=== PATIENT | male | born 1970 | race Caucasian/White ===

== ENCOUNTER 2018-07-21 11:26 | Day surgery (SDC) | payer BC ==
[2018-07-20 11:44] VITALS: BMI 35.9
[~2018-07-21 11:26] MED LIST: LACTATED RINGERS 1,000 ML IV SCH; LIDOCAINE 1% 20 ML VIAL (10MG/ML) FOR IV START INTRADERMA PRN
[2018-07-21 11:59] VITALS: RESP 16; TEMP 97.1
[2018-07-21] MEDS ORDERED: GLYCOPYRROLATE 0.2 MG/ML 2 ML VIAL ONE (12:00)
[2018-07-21] MEDS ORDERED: GLUCAGON 1 MG/ML VIAL ONE (12:00)
[2018-07-21] MEDS ORDERED: LIDOCAINE 1% INJ 10MG/ML (20 ML MDV) ONE (12:00)
[2018-07-21] MEDS ORDERED: PROPOFOL 10 MG/ML 20 ML VIAL IV ONE (12:00)
--- NOTE | 2018-07-21 12:03 | P.GSHP ---
History of Present Illness H&P Date: 07/21/18 Chief Complaint: GI bleed This is a 48-year-old male who presents today for EGD and colonoscopy. He's had issues with rectal bleeding. Patient's complaints of multiple bloody bowel movements. Past Medical History Past Medical History: GERD/Reflux, Hypertension Additional Past Medical History / Comment(s): no longer on rx for b/p,currently having bleeding with stools History of Any Multi-Drug Resistant Organisms: None Reported Past Surgical History: Appendectomy Additional Past Surgical History / Comment(s): hole in lining of stomach repaired to tx heartburn Past Anesthesia/Blood Transfusion Reactions: No Reported Reaction Smoking Status: Current every day smoker - Past Family History Mother Family Medical History: No Reported History Medications and Allergies Home Medications Medication Instructions Recorded Confirmed Type No Known Home Medications 10/23/15 07/21/18 History Allergies Allergy/AdvReac Type Severity Reaction Status Date / Time No Known Allergies Allergy Verified 07/21/18 11:43 Surgical - Exam Vital Signs Temp Pulse Resp BP Pulse Ox 97.1 F L 58 L 16 153/96 95 07/21/18 11:57 07/21/18 11:57 07/21/18 11:57 07/21/18 11:57 07/21/18 11:57 - General well developed, well nourished, no distress - Eyes PERRL - ENT normal pinna - Neck no masses - Respiratory normal expansion, normal respiratory effort - Cardiovascular Rhythm: regular - Abdomen Abdomen: soft, non tender Assessment and Plan Assessment: GI bleed. We'll perform colonoscopy and EGD.
[2018-07-21 12:51] VITALS: BP 152/95; PULSE 68
[2018-07-21 12:55] LABS: HCT 42.1 % (39.0-53.0); HGB 14.1 gm/dL (13.0-17.5); MCH 28.5 pg (25.0-35.0); MCHC 33.4 g/dL (31.0-37.0); MCV 85.3 fL (80.0-100.0); Mean Platelet Volume 8.7; Platelet Count 199 k/uL (150-450); RBC 4.94 m/uL (4.30-5.90); RDW 13.2 % (11.5-15.5); WBC 6.6 k/uL (3.8-10.6)
--- NOTE | 2018-07-27 17:51 | PCN ---
PROCEDURE NOTE DATE OF PROCEDURE: 07/21/2018 PROCEDURE: Esophagogastroduodenoscopy and colonoscopy. PREOPERATIVE DIAGNOSIS: Gastrointestinal bleed. POSTOPERATIVE DIAGNOSES: 1. Mild antral gastritis. 2. Multiple colonic biopsies; pathology pending. SURGEON: Dr. Carrillo. INSTRUCTIONAL TECHNOLOGY INSTRUCTOR: None. ANESTHESIA: MAC PROCEDURE DESCRIPTION: Patient was placed on the endoscopy table in a lateral position. He received IV sedation. The gastroscope was placed into the oropharynx and passed into the esophagus and into the stomach. The scope was then placed through the pylorus. The first and second portions of the duodenum appeared normal. The scope was then brought back to the antrum, and this appeared minimally inflamed. A biopsy was performed. There was no evidence of any blood in the stomach or duodenum. The scope was then retroflexed. Remainder of the stomach appeared normal. There was no significant hiatal hernia. The GE junction was at 40 cm. The distal esophagus and proximal esophagus appeared normal. Once again, there was no bleeding seen in the esophagus, stomach or duodenum. At this point the scope was withdrawn and then a digital rectal exam was performed. There was some minimal bloody fluid noted on the examining finger. The flexible colonoscope was then placed through the anus and passed throughout the entire colon. The ileocecal valve was visualized. There was dark bloody stool seen throughout the entire colon. This limited the view of the mucosa. Because of the blood seen throughout the entire colon, biopsies of the colon were performed in the right colon, transverse colon, descending colon, sigmoid colon and rectum. Using the cold forceps, the biopsies were performed. There was no evidence of any active bleeding. There was no evidence of any polyps or tumors. At this point the scope was withdrawn. The patient tolerated the procedure well. MMODL / IJN: [id number] /
== END 2018-07-21 13:38 | disposition home or self-care (01) ==
LOC: ORWHC2ENDO 11:26
PROVIDERS: ATTEND Surgery
DX: K92.1 Melena (principal); K29.50 Unspecified chronic gastritis without bleeding; K21.9 Gastro-esophageal reflux disease without esophagitis; I10 Essential (primary) hypertension; F17.210 Nicotine dependence, cigarettes, uncomplicated; Z79.899 Other long term (current) drug therapy
CPT/HCPCS: 88305; 85027; 45380; 43239; J1610; J2001; J2704

== ENCOUNTER → 2018-08-13 | Outpatient (CLI) | payer BC ==
--- NOTE | 2018-08-13 18:43 | CT ---
EXAMINATION TYPE: CT abdomen pelvis w con DATE OF EXAM: 08/13/2018 COMPARISON: None HISTORY: blood in stool X [address] DLP: 1623 mGycm Automated exposure control for dose reduction was used. TECHNIQUE: Helical acquisition of images was performed from the lung bases through the pelvis. CONTRAST: Performed with Oral Contrast and with IV Contrast, patient injected with 100 mL of Isovue 300. FINDINGS: Lung bases are clear. There is no pleural effusion. Heart size is normal. There is no pericardial eff usion. Liver shows no focal defect. Gallbladder appears normal. Spleen appears normal. There is no pa ncreatic mass. There is no adrenal mass. Kidneys show satisfactory contrast opacification. There is n o hydronephrosis. Stomach appears normal in size. There are clips at the gastroesophageal junction. Bladder distends smoothly. There is no free fluid in the pelvis. There is no inguinal hernia. There i s no mesenteric edema. Appendix is not definitely seen. There is no sign of appendicitis. There is some wall thickening of the sigmoid colon. There are a few sigmoid diverticula. Lumbar spine is intact. I see no bony destructive process. Delayed images show normal contrast excretion. IMPRESSION: PREVIOUS GASTRIC SURGERY. MILD WALL THICKENING OF THE SIGMOID COLON WITH A FEW SCATTERED DIVERTICULA. POSSIBLE FOCAL SIGMOID MASS ON IMAGE 70 AXIAL SEQUENCE. SIGMOIDOSCOPY IS RECOMMENDED FOR FURTHER LESLIE LUATION IF CLINICALLY INDICATED.
== END | disposition home or self-care (01) ==
LOC: RADCTMAIN 15:30
PROVIDERS: ATTEND Surgery
DX: K57.30 Diverticulosis of large intestine without perforation or abscess without bleeding (principal); Z98.890 Other specified postprocedural states
CPT/HCPCS: 74177; Q9967

== ENCOUNTER 2018-08-14 22:41 | Emergency (ER) | payer BC ==
[2018-08-14 23:16] LABS: Basophils % (A) 0 %; Eosinophils # (A) 0.2 k/uL (0-0.7); Eosinophils % (A) 2 %; HCT 47.6 % (39.0-53.0); Lymphocytes # (A) 1.7 k/uL (1.0-4.8); Lymphocytes % (A) 18 %; MCH 28.4 pg (25.0-35.0); MCHC 33.6 g/dL (31.0-37.0); MCV 84.5 fL (80.0-100.0); Monocytes # (A) 0.6 k/uL (0-1.0); Monocytes % (A) 6 %; Neutrophils # (A) 6.7 k/uL (1.3-7.7); Neutrophils % (A) 72 %; Platelet Count 318 k/uL (150-450); RBC 5.63 m/uL (4.30-5.90); RDW 13.4 % (11.5-15.5); WBC 9.4 k/uL (3.8-10.6)
[2018-08-14 23:20] LABS: ALT 61 U/L (21-72); AST 33 U/L (17-59); Albumin 4.6 g/dL (3.5-5.0); Alkaline Phosphatase 76 U/L (38-126); Anion Gap 9 mmol/L; Blood Urea Nitrogen 12 mg/dL (9-20); Calcium 10.3 mg/dL (8.4-10.2); Carbon Dioxide 23 mmol/L (22-30); Chloride 107 mmol/L (98-107); Glucose 100 mg/dL (74-99); Potassium 4.2 mmol/L (3.5-5.1); Sodium 139 mmol/L (137-145); Total Bilirubin 0.5 mg/dL (0.2-1.3)
--- NOTE | 2018-08-14 23:59 | ED ---
GI Bleed HPI - General Chief complaint: GI Bleed Stated complaint: Dizzy, Blood in stool Time Seen by Provider: 08/14/18 22:50 Source: patient, family Mode of arrival: wheelchair Limitations: no limitations - History of Present Illness Initial comments: Patient is a 48-year-old gentleman who has been experiencing red rectal bleeding for approximately a month. He has followed up with general surgery and had an endoscopy and colonoscopy. Colonoscopy did reveal some blood in the colon which limited visibility however multiple biopsies were obtained which were all benign in nature. In addition he underwent a computed tomography scan yesterday does not yet have the results. Patient reports that today he is feeling somewhat lightheaded upon standing and was concerned this may be related to blood loss of came to the ER to have his hemoglobin checked. Patient denies any chest pain, palpitations or shortness of breath. He reports that he still having bright red blood with stools daily. There is been no increase in the bleeding today. In addition patient does report that he has had URI-like symptoms nasal congestion and rhinorrhea which is improving this week however he has noticed that he has fullness in his right ear and feels that he has decreased hearing in that ear. He also feels somewhat dizzy with the room spinning sensation at times however primarily was experiencing lightheadedness which she felt resolved by laying down and relaxing. - Related Data Home Medications Medication Instructions Recorded Confirmed Metoprolol Tartrate [Lopressor] 50 mg PO DAILY 08/14/18 08/14/18 Allergies Allergy/AdvReac Type Severity Reaction Status Date / Time No Known Allergies Allergy Verified 08/14/18 23:06 Review of Systems ROS Statement: Those systems with pertinent positive or pertinent negative responses have been documented in the HPI. ROS Other: All systems not noted in ROS Statement are negative. Past Medical History Past Medical History: GERD/Reflux, Hypertension Additional Past Medical History / Comment(s): no longer on rx for b/p,currently having bleeding with stools History of Any Multi-Drug Resistant Organisms: None Reported Past Surgical History: Appendectomy Additional Past Surgical History / Comment(s): hole in lining of stomach repaired to tx heartburn Past Anesthesia/Blood Transfusion Reactions: No Reported Reaction Past Psychological History: No Psychological Hx Reported Smoking Status: Current every day smoker Past Alcohol Use History: None Reported Past Drug Use History: None Reported - Past Family History Mother Family Medical History: No Reported History General Exam - General Exam Comments Initial Comments: Physical Exam GENERAL: Patient is well-developed and well-nourished. Patient is nontoxic and well- hydrated and is in no distress. No pallor or flushing HENT: Normocephalic, Atraumatic. EYES: PERRL, EOMI No conjunctival pallor PULMONARY: Unlabored respirations. No audible rales rhonchi or wheezing was noted. CARDIOVASCULAR: There is a regular rate and rhythm without any murmurs gallops or rubs. ABDOMEN: Soft and nontender with normal bowel sounds. SKIN: Skin is clear with no lesions or rashes and otherwise unremarkable. : Deferred NEUROLOGIC: Patient is alert and oriented x3. Moving all extremities spontaneously MUSCULOSKELETAL: Normal extremities with adequate strength and full range of motion. No lower extremity swelling or edema. No calf tenderness. PSYCHIATRIC: Normal psychiatric evaluation. Limitations: no limitations Limitations: no limitations Course Vital Signs 08/14/18 08/14/18 22:44 23:34 Temperature 99.2 F Pulse Rate 93 Respiratory 20 16 Rate Blood Pressure 148/108 O2 Sat by Pulse 99 Oximetry Medical Decision Making - Medical Decision Making The patient was seen and evaluated history was obtained from the patient Medical record was reviewed - patient had computed tomography scan with some sigmoid inflammation, biopsies were negative Baseline hemoglobin 14 Repeat labs were ordered hemoglobin today is 16 patient's hemodynamically stable results were discussed patient patient was given a printout of his CT and biopsy findings he expressed relief under Alexander's. All questions pertaining care were answered return parameters were discussed advised the patient that he should follow up with gastroenterology as well as general surgery for evaluation of inflammatory causes of GI bleeding. Patient agreeable to this. He is scheduled to see Dr. Bina meneses on the of this month. He is scheduled follow-up Dr. Arenas later this week. Return parameters discussed patient was discharged home in stable condition. - Lab Data Result diagrams: 08/14/18 23:00 08/14/18 23:00 Lab Results 08/14/18 08/14/18 Range/Units 23:00 23:00 WBC 9.4 (3.8-10.6) k/uL RBC 5.63 (4.30-5.90) m/uL Hgb 16.0 (13.0-17.5) gm/dL Hct 47.6 (39.0-53.0) % MCV 84.5 (80.0-100.0) fL MCH 28.4 (25.0-35.0) pg MCHC 33.6 (31.0-37.0) g/dL RDW 13.4 (11.5-15.5) % Plt Count 318 (150-450) k/uL Neutrophils % 72 % Lymphocytes % 18 % Monocytes % 6 % Eosinophils % 2 % Basophils % 0 % Neutrophils # 6.7 (1.3-7.7) k/uL Lymphocytes # 1.7 (1.0-4.8) k/uL Monocytes # 0.6 (0-1.0) k/uL Eosinophils # 0.2 (0-0.7) k/uL Basophils # 0.0 (0-0.2) k/uL Sodium 139 (137-145) mmol/L Potassium 4.2 (3.5-5.1) mmol/L Chloride 107 (98-107) mmol/L Carbon Dioxide 23 (22-30) mmol/L Anion Gap 9 mmol/L BUN 12 (9-20) mg/dL Creatinine 0.97 (0.66-1.25) mg/dL Est GFR (CKD-EPI)AfAm >90 (>60 ml/min/1.73 sqM) Est GFR (CKD-EPI)NonAf >90 (>60 ml/min/1.73 sqM) Glucose 100 H (74-99) mg/dL Calcium 10.3 H (8.4-10.2) mg/dL Total Bilirubin 0.5 (0.2-1.3) mg/dL AST 33 (17-59) U/L ALT 61 (21-72) U/L Alkaline Phosphatase 76 (38-126) U/L Total Protein 8.0 (6.3-8.2) g/dL Albumin 4.6 (3.5-5.0) g/dL Disposition Clinical Impression: GI bleeding Disposition: HOME SELF-CARE Condition: Stable Instructions (If sedation given, give patient instructions): Gastrointestinal Bleeding (ED) Is patient prescribed a controlled substance at d/c from ED?: No Referrals: Coretta Rodriguez, [Primary Care Provider] - 1-2 days
[2018-08-15 00:47] VITALS: BP 147/103; PULSE 80; RESP 19; TEMP 98.6
== END 2018-08-15 00:42 | disposition home or self-care (01) ==
LOC: EC 22:41
DX: K92.1 Melena (principal); R42 Dizziness and giddiness; R09.81 Nasal congestion; J34.89 Other specified disorders of nose and nasal sinuses; I10 Essential (primary) hypertension; F17.200 Nicotine dependence, unspecified, uncomplicated; Z90.49 Acquired absence of other specified parts of digestive tract; Z79.899 Other long term (current) drug therapy
CPT/HCPCS: 36415; 80053; 85025; 99285

== ENCOUNTER → 2018-08-25 | Day surgery (SDC) | payer BC ==
[2018-08-23 13:06] VITALS: BMI 36.2
[~2018-08-25] MED LIST changes: +LIDOCAINE 1% 20 ML VIAL (10MG/ML) FOR IV START INTRADERMA ONE; +LIDOCAINE 1% INJ 10MG/ML (20 ML MDV) ONE; +PROPOFOL 10 MG/ML 20 ML VIAL IV ONE
[2018-08-25 10:48] VITALS: TEMP 96.7
--- NOTE | 2018-08-25 10:58 | P.GSHP ---
History of Present Illness H&P Date: 08/25/18 Chief Complaint: GI bleed, diverticulitis This a 48-year-old male with a history of GI bleed. The patient a previous colonoscopy which shows evidence of thickening of the sigmoid colon and possible diverticulitis. He presents today for colonoscopy. Past Medical History Past Medical History: GERD/Reflux, Hypertension Additional Past Medical History / Comment(s): currently having bleeding with stools History of Any Multi-Drug Resistant Organisms: None Reported Past Surgical History: Appendectomy Additional Past Surgical History / Comment(s): hole in lining of stomach repaired to tx heartburn Past Anesthesia/Blood Transfusion Reactions: No Reported Reaction Smoking Status: Current every day smoker - Past Family History Mother Family Medical History: No Reported History Medications and Allergies Home Medications Medication Instructions Recorded Confirmed Type Metoprolol Tartrate [Lopressor] 50 mg PO DAILY 08/14/18 08/25/18 History Allergies Allergy/AdvReac Type Severity Reaction Status Date / Time No Known Allergies Allergy Verified 08/23/18 13:02 Surgical - Exam Vital Signs Temp Pulse Resp BP Pulse Ox 96.7 F L 72 16 166/99 97 08/25/18 10:45 08/25/18 10:45 08/25/18 10:45 08/25/18 10:45 08/25/18 10:45 - General well developed, well nourished, no distress - Eyes PERRL - ENT normal pinna - Neck no masses - Respiratory normal expansion - Cardiovascular Rhythm: regular - Abdomen Abdomen: soft, non tender Assessment and Plan Assessment: History of GI bleed Diverticulosis We'll perform colonoscopy.
--- NOTE | 2018-08-25 11:15 | P.OP ---
Date of Procedure: 08/25/18 Preoperative Diagnosis: GI bleed Diverticulitis Postoperative Diagnosis: Rectal polyp Diverticulosis Sigmoid colon biopsy pathology pending Procedure(s) Performed: Colonoscopy Anesthesia: MAC Surgeon: Michael Carrillo Pathology: other (Rectal polyp, sigmoid: Biopsy) Condition: stable Disposition: PACU Description of Procedure: The patient's placed on the endoscopy table lateral position. He received IV sedation. Digital rectal exam performed which revealed no abnormalities. The prostate was symmetric without nodules. The flexible colonoscope was then placed patient anus passed throughout the entire colon. The ileocecal valve was visualized. Cecum, ascending and transverse colon appeared normal. The descending colon was normal. Scope summer back the rectum and there is some minor diverticuli seen. The colon appeared to be slightly inflamed. This area is biopsied. Scope was then brought back the rectum and another polyp seen this removed with the cold forcep. The scope was withdrawn for patient.
[2018-08-25 11:54] VITALS: BP 160/99; PULSE 52; RESP 18
== END | disposition home or self-care (01) ==
LOC: ORWHC2ENDO 10:36
PROVIDERS: ATTEND Surgery
DX: K21.9 Gastro-esophageal reflux disease without esophagitis (principal); K57.31 Diverticulosis of large intestine without perforation or abscess with bleeding; I10 Essential (primary) hypertension; F17.210 Nicotine dependence, cigarettes, uncomplicated; Z79.899 Other long term (current) drug therapy; Z87.19 Personal history of other diseases of the digestive system
CPT/HCPCS: 88305; 45380; J2001; J2704

== ENCOUNTER 2019-10-11 11:45 | Emergency (ER) | payer BC ==
[2019-10-11 11:56] VITALS: RESP 18
[2019-10-11] MEDS ORDERED: ASPIRIN 81 MG PO STA (12:23)
[2019-10-11] MEDS ORDERED: LORazepam 2 MG/ML INJ IV STA (12:24)
--- NOTE | 2019-10-11 12:27 | ED ---
Chest Pain HPI - General Chief Complaint: Chest Pain Stated Complaint: High BP/panic attack Time Seen by Provider: 10/11/19 12:04 Source: patient Mode of arrival: wheelchair Limitations: no limitations - History of Present Illness Initial Comments: 49-year-old male presenting today for chest pain possible panic attack. Patient states that for the past 2-3 nights he has not been able to sleep he states he has had increasing side he states he feels like he has chest pain shortness of breath only when he takes a deep breath. He states this sharp in nature denies any pain in the back. Patient states at times it feels tight. Patient states that he was recently evaluated for chest pain one month ago in [place] he states he had a chest x-ray EKG and laboratory studies drawn. Patient stated a routine thing returned normal as far as he knew he is diagnosed with a panic attack. He states he is also test for code at that time. Patient denies any known exposures. Patient denies any cough or fevers body aches or throat. Patient states he has been self isolating a home for the past 4 weeks since his discharge from [place]. He states he does not concern for Coumadin 19 infection. Patient states he has also noted that his blood pressures been elevated he saw his primary care provider approximately 10 days ago where he had an increase in his metoprolol tartate up to 50 mg as well as prescribed Lexapro which she has not began to initiate treatment. Patient is a previous smoker, occasionally uses marijuana, denies cocaine use. Patient denies DM, CAD. Upon review of system patient also admits to loose stools 2 days, and bloating sensation. Patient feels this is all related to anxiety. Patient denies hemoptysis leg swelling recent travel immobilization surgical procedures he denies history of DVT or pulmonary embolism. Patient on arrival appears well there is no signs of acute distress. - Related Data Home Medications Medication Instructions Recorded Confirmed Metoprolol Tartrate [Lopressor] 50 mg PO DAILY 08/14/18 08/25/18 Previous Rx's Medication Instructions Recorded ALPRAZolam [Xanax] 0.25 mg PO BID PRN 3 Days #6 tab 10/11/19 Allergies Allergy/AdvReac Type Severity Reaction Status Date / Time No Known Allergies Allergy Verified 10/11/19 11:56 Review of Systems ROS Statement: Those systems with pertinent positive or pertinent negative responses have been documented in the HPI. ROS Other: All systems not noted in ROS Statement are negative. EKG Findings - EKG Comments: EKG Findings:: Ventricular rate 63 bpm, ME interval 184 ms, QRS ratio 104 ms, QT/QTC 422/431 ms. This appears to be in normal sinus with sinus arrhythmia. There is no ST elevation or depression. No specific changes consistent with acute process. Past Medical History Past Medical History: GERD/Reflux, Hypertension Additional Past Medical History / Comment(s): currently having bleeding with stools History of Any Multi-Drug Resistant Organisms: None Reported Past Surgical History: Appendectomy Additional Past Surgical History / Comment(s): hole in lining of stomach repaired to tx heartburn Past Anesthesia/Blood Transfusion Reactions: No Reported Reaction Past Psychological History: No Psychological Hx Reported Smoking Status: Former smoker Past Alcohol Use History: None Reported Past Drug Use History: Marijuana - Past Family History Mother Family Medical History: No Reported History General Exam - General Exam Comments Initial Comments: General: The patient is awake and alert, in no distress, and does not appear acutely ill. Eye: +3 mm pupils are equal, round and reactive to light, extra-ocular movements are intact. No nystagmus. There is normal conjunctiva bilaterally. No signs of icterus. Ears, nose, mouth and throat: There are moist mucous membranes and no oral lesions. Neck: The neck is supple, there is no tenderness or JVD. Cardiovascular: There is a regular rate and rhythm. No murmur, rub or gallop is appreciated. Respiratory: Lungs are clear to auscultation, respirations are non-labored, breath sounds are equal. No wheezes, stridor, rales, or rhonchi. Gastrointestinal: Soft, non-distended, non-tender abdomen without masses or organomegaly noted. There is no rebound or guarding present. Musculoskeletal: Normal ROM, no tenderness. Strength 5/5. Sensation intact. Radial pulses equal bilaterally 2+. Neurological: A&O x 3. CN II-XII intact, There are no obvious motor or sensory deficits. Coordination appears grossly intact. Speech is normal. Skin: Skin is warm and dry and no rashes or lesions are noted. No LE swelling, no edema or calf pain. Psychiatric: Cooperative, appropriate mood & affect, normal judgment. Limitations: no limitations Course Vital Signs 04/10/11/19 10/11/19 11:52 12:39 13:30 Temperature 98.7 F Pulse Rate 60 64 61 Respiratory 18 18 18 Rate Blood Pressure 160/109 134/87 125/85 O2 Sat by Pulse 96 96 95 Oximetry 10/11/19 14:21 Temperature 98.0 F Pulse Rate 61 Respiratory 18 Rate Blood Pressure 122/82 O2 Sat by Pulse 95 Oximetry Chest Pain MDM - MDM 49-year-old male presenting today for chief complaint of sharp chest pain possible panic attack. Patient states feels like he is having a panic attack as he has had one in the past-- pt requesting treatment for anxiety. Patient's blood pressure normalized after 1 mg of Ativan. Patient's troponin negative EKG no acute findings. Chest x-ray clear lung sounds clear heart sounds within normal limits. Patient does not appear diaphoretic or in distress and has been ongoing for 2 days symptoms. patient was recommended to have throughout troponin however he refused stating that he is positives that headache attack or like to go home. patient was prescribed xanax outpatient for anxiety i discussed the importance of taking blood pressure prior to taking any blood pressure medications to ensure no medication induced hypotension. i recommended consultation patient's primary care provider in obtaining outpatient stress testing. return for management discussed at length including immediate return for return of chest pain patient verbalizes understanding case was discussed with attending provider and he was discharged appearing well Disposition Clinical Impression: Elevated blood pressure reading, Anxiety, Atypical chest pain Disposition: HOME SELF-CARE Condition: Good Instructions (If sedation given, give patient instructions): Chest Pain (ED), Anxiety (ED) Additional Instructions: Please use medication as discussed. Please follow-up with family doctor in the next 2 days, recommend outpatient stress testing. Please return to emergency room if the symptoms increase or worsen or for any other concerns. Prescriptions: ALPRAZolam [Xanax] 0.25 mg PO BID PRN 3 Days #6 tab PRN Reason: Anxiety Is patient prescribed a controlled substance at d/c from ED?: No Referrals: Coretta Rodriguez DO [Primary Care Provider] - 1-2 days Time of Disposition: 14:02
[2019-10-11 12:40] LABS: Basophils % (A) 1 %; Eosinophils # (A) 0.1 k/uL (0-0.7); Eosinophils % (A) 1 %; HCT 49.7 % (39.0-53.0); Lymphocytes # (A) 1.4 k/uL (1.0-4.8); Lymphocytes % (A) 18 %; MCH 29.4 pg (25.0-35.0); MCHC 34.2 g/dL (31.0-37.0); Mean Platelet Volume 8.9; Monocytes # (A) 0.5 k/uL (0-1.0); Monocytes % (A) 6 %; Neutrophils % (A) 73 %; Platelet Count 254 k/uL (150-450); RBC 5.78 m/uL (4.30-5.90); RDW 12.8 % (11.5-15.5); WBC 8.2 k/uL (3.8-10.6)
--- NOTE | 2019-10-11 12:45 | XR ---
EXAMINATION TYPE: XR chest 2V DATE OF EXAM: 10/11/2019 COMPARISON: 10/23/2015 INDICATION: Chest pain, short of breath TECHNIQUE: Frontal and lateral views of the chest are obtained. FINDINGS: The heart size is normal. The pulmonary vasculature is normal. Minimal increased linear densities are at the right base. Correlate for subsegmental atelectasis or a typical pneumonia. Lungs are otherwise clear. IMPRESSION: 1. Minimal right basilar infiltrate. Correlate for atelectasis or atypical pneumonia.
[2019-10-11 12:51] LABS: ALT 84 U/L (4-49); AST 45 U/L (17-59); African American GFR (CKD) >90 (>60 ml/min/1.73 sqM); Albumin 4.9 g/dL (3.5-5.0); Alkaline Phosphatase 70 U/L (38-126); Anion Gap 12 mmol/L; Blood Urea Nitrogen 16 mg/dL (9-20); Calcium 10.3 mg/dL (8.4-10.2); Carbon Dioxide 24 mmol/L (22-30); Chloride 102 mmol/L (98-107); Glucose 125 mg/dL (74-99); Magnesium 2.2 mg/dL (1.6-2.3); Non-African American GFR(CKD) 85 (>60 ml/min/1.73 sqM); Potassium 4.4 mmol/L (3.5-5.1); Sodium 138 mmol/L (137-145); Total Bilirubin 0.7 mg/dL (0.2-1.3); Total Protein 8.4 g/dL (6.3-8.2)
[2019-10-11 12:53] LABS: Partial Thromboplastin Time 24.1 sec (22.0-30.0); Prothrombin Time 10.2 sec (9.0-12.0)
[2019-10-11 12:54] LABS: D-Dimer <0.17 mg/L FEU (<0.60)
[2019-10-11 13:46] VITALS: PULSE 61
[2019-10-11 14:21] VITALS: BP 122/82; TEMP 98
== END 2019-10-11 14:21 | disposition home or self-care (01) ==
LOC: EC 11:45
DX: F41.9 Anxiety disorder, unspecified (principal); R07.89 Other chest pain; I10 Essential (primary) hypertension; Z79.899 Other long term (current) drug therapy; Z87.891 Personal history of nicotine dependence
CPT/HCPCS: 36415; 93005; 85379; 83880; 80053; 83690; 83735; 84484; 85025; 85610; 85730; 87635; 71046; 99285; 96374; J2060

== ENCOUNTER 2020-04-05 10:35 | Day surgery (SDC) | payer BC ==
[2020-04-03 12:08] VITALS: BMI 36.8
[~2020-04-05 10:35] MED LIST changes: -LIDOCAINE 1% 20 ML VIAL (10MG/ML) FOR IV START INTRADERMA ONE; -LIDOCAINE 1% 20 ML VIAL (10MG/ML) FOR IV START INTRADERMA PRN; -LIDOCAINE 1% INJ 10MG/ML (20 ML MDV) ONE; -PROPOFOL 10 MG/ML 20 ML VIAL IV ONE
[2020-04-05 11:46] VITALS: TEMP 97.4
[2020-04-05] MEDS ORDERED: LIDOCAINE 1% (10MG/ML) FOR IV START INTRADERMA ONE (11:53)
[2020-04-05 11:56] LABS: Glucose,Whole Blood 128 mg/dL (75-99)
--- NOTE | 2020-04-05 12:20 | P.GSHP ---
History of Present Illness H&P Date: 04/05/20 Chief Complaint: Epigastric pain, indigestion This a 49-year-old male said complaints of epigastric pain and indigestion. Patient presents today for EGD. Past Medical History Past Medical History: Diabetes Mellitus, GERD/Reflux, Hypertension Additional Past Medical History / Comment(s): HX GERD - SURGERY ? [facility]LICATION., HX OF BLOOD IN STOOL WITH COLON POLYP, STATES SCHEDULED TO SEE PULMONARY DR FOR POSSIBLE SLEEP APNEA- STATES HE WAKES UP GASPING FOR AIR AND HE SNORES. History of Any Multi-Drug Resistant Organisms: None Reported Past Surgical History: Appendectomy Additional Past Surgical History / Comment(s): hole in lining of stomach repaired to tx heartburn ? [facility] FUNDOPLICATION Past Anesthesia/Blood Transfusion Reactions: No Reported Reaction Past Psychological History: No Psychological Hx Reported Smoking Status: Former smoker Past Alcohol Use History: None Reported Additional Past Alcohol Use History / Comment(s): started smoking at age 23,1ppd- QUIT SMOKING 2 DAYS AGO. Past Drug Use History: Marijuana Additional Drug Use History / Comment(s): NO CURRENT MARIJUANA - Past Family History Mother Family Medical History: No Reported History Medications and Allergies Home Medications Medication Instructions Recorded Confirmed Type Fenofibrate Nanocrystallized 145 mg PO DAILY 04/03/20 04/05/20 History [Fenofibrate] Metoprolol Succinate [Toprol XL] 100 mg PO DAILY 04/03/20 04/05/20 History lisinopriL [Zestril] 5 mg PO DAILY 04/03/20 04/05/20 History sitaGLIPtin PHOS/metFORMIN HCL 1 each PO DAILY 04/03/20 04/05/20 History [Janumet Xr 100-1,000 mg Tablet] Allergies Allergy/AdvReac Type Severity Reaction Status Date / Time No Known Allergies Allergy Verified 04/03/20 11:42 Surgical - Exam Vital Signs Temp Pulse Resp BP Pulse Ox 97.4 F L 60 16 147/82 95 04/05/20 11:45 04/05/20 11:45 04/05/20 11:45 04/05/20 11:45 04/05/20 11:45 - General well developed, well nourished, no distress - Eyes PERRL - ENT normal pinna - Neck no masses - Respiratory normal expansion - Cardiovascular Rhythm: regular - Abdomen Abdomen: soft, non tender Results - Labs Abnormal Lab Results - Last 24 Hours (Table) 04/05/20 Range/Units 11:52 POC Glucose (mg/dL) 128 H (75-99) mg/dL Assessment and Plan Assessment: Epigastric pain, indigestion. We'll perform EGD.
[2020-04-05] MEDS ORDERED: LIDOCAINE 1% INJ 10MG/ML (20 ML MDV) ONE (12:25)
[2020-04-05] MEDS ORDERED: PROPOFOL 10 MG/ML 20 ML VIAL IV ONE (12:25)
--- NOTE | 2020-04-05 12:37 | P.OP ---
Date of Procedure: 04/05/20 Preoperative Diagnosis: Epigastric pain, indigestion Postoperative Diagnosis: Mild antral gastritis Procedure(s) Performed: EGD Anesthesia: MAC Surgeon: Michael Carrillo Pathology: other (Antrum) Condition: stable Disposition: PACU Description of Procedure: Patient's placed on the endoscopy table in the lateral position. He received IV sedation. The gastroscope placed oropharynx passed in the esophagus into the stomach. Scope was then placed through the pylorus. First and second portion of the duodenum appeared normal. Scope summer back the antrum this was mildly inflamed. A biopsies performed. The scope was then retroflexed and the remainder of the stomach appeared normal. There is no significant hiatal hernia. The GE junction was at 40 cm. The distal esophagus appeared normal. The proximal esophagus appeared normal. Scope was withdrawn for patient.
[2020-04-05 12:59] VITALS: RESP 16
[2020-04-05 13:10] VITALS: BP 129/89; PULSE 58
== END 2020-04-05 13:17 | disposition home or self-care (01) ==
LOC: ORWHC2ENDO 10:35
PROVIDERS: ATTEND Surgery
DX: K29.50 Unspecified chronic gastritis without bleeding (principal); E11.9 Type 2 diabetes mellitus without complications; K21.9 Gastro-esophageal reflux disease without esophagitis; I10 Essential (primary) hypertension; R06.00 Dyspnea, unspecified; R06.83 Snoring; E78.5 Hyperlipidemia, unspecified; Z87.19 Personal history of other diseases of the digestive system; Z90.49 Acquired absence of other specified parts of digestive tract; Z98.890 Other specified postprocedural states; Z87.891 Personal history of nicotine dependence; Z79.899 Other long term (current) drug therapy; Z79.84 Long term (current) use of oral hypoglycemic drugs
CPT/HCPCS: 88305; 43239; J2001; J2704

== ENCOUNTER 2020-04-11 06:58 | Day surgery (SDC) | payer BC ==
[2020-04-09 14:20] VITALS: BMI 35.4
[~2020-04-11 06:58] MED LIST changes: +ACETAMINOPHEN TAB 500 MG TAB PO ONE; +HEPARIN SODIUM,PORCINE 5,000 UNIT/ML 1 ML VIAL SQ ONE; +HYDROmorphone 0.5 MG/0.5 ML SYRINGE IVP PRN; +MIDAZOLAM 2 MG/2 ML VIAL IV PRN; +ONDANSETRON 4 MG/2 ML VIAL IVP PRN; +fentaNYL (PF) 50 MCG/ML 2 ML AMP IV PRN
[2020-04-11] MEDS ORDERED: LIDOCAINE 1% (10MG/ML) FOR IV START INTRADERMA ONE (07:30)
[2020-04-11 07:35] LABS: Glucose,Whole Blood 135 mg/dL (75-99)
[2020-04-11] MEDS ORDERED: DEXAMETHASONE SOD PHOSPHATE 10 MG/ML 1 ML VIAL IV ONE (08:30)
--- NOTE | 2020-04-11 08:41 | P.GSHP ---
History of Present Illness H&P Date: 04/11/20 Chief Complaint: Right upper quadrant pain This a 49-year-old male with completely torn quadrant pain. Patient's workup found have evidence of cholelithiasis and biliary sludge. He presents today for laparoscopic cholecystectomy Past Medical History Past Medical History: Diabetes Mellitus, GERD/Reflux, Hyperlipidemia, Hypertension Additional Past Medical History / Comment(s): frequent nausea and vomiting History of Any Multi-Drug Resistant Organisms: None Reported Past Surgical History: Appendectomy Additional Past Surgical History / Comment(s): tatiana fundoplacation, EGD Past Anesthesia/Blood Transfusion Reactions: Previous Problems w/ Anesthesia Additional Past Anesthesia/Blood Transfusion Reaction / Comment(s): patient states was told he "was combative post op EGD" Smoking Status: Former smoker - Past Family History Mother Family Medical History: No Reported History Medications and Allergies Home Medications Medication Instructions Recorded Confirmed Type Fenofibrate Nanocrystallized 145 mg PO QAM 04/03/20 04/11/20 History [Fenofibrate] Metoprolol Succinate [Toprol XL] 100 mg PO QAM 04/03/20 04/11/20 History lisinopriL [Zestril] 5 mg PO QAM 04/03/20 04/11/20 History sitaGLIPtin PHOS/metFORMIN HCL 1 each PO QAM 04/03/20 04/11/20 History [Janumet Xr 100-1,000 mg Tablet] Atorvastatin [Lipitor] 20 mg PO HS 04/09/20 04/11/20 History Escitalopram [Lexapro] 5 mg PO QAM 04/09/20 04/11/20 History Allergies Allergy/AdvReac Type Severity Reaction Status Date / Time No Known Allergies Allergy Verified 04/11/20 07:23 Surgical - Exam Vital Signs Temp Pulse Resp BP Pulse Ox 97.4 F L 79 18 155/107 95 04/11/20 07:40 04/11/20 07:40 04/11/20 07:40 04/11/20 07:40 04/11/20 07:40 - General well developed, well nourished, no distress - Eyes PERRL - ENT normal pinna - Neck no masses - Respiratory normal expansion - Cardiovascular Rhythm: regular - Abdomen Abdomen: soft, non tender Results - Labs Abnormal Lab Results - Last 24 Hours (Table) 10/28/20 Range/Units 07:33 POC Glucose (mg/dL) 135 H (75-99) mg/dL Assessment and Plan Assessment: Cholelithiasis Chronic cholecystitis We'll perform laparoscopic cholecystectomy
[2020-04-11] MEDS ORDERED: BUPIVACAINE (PF) 0.25% 30 ML VIAL SQ ONE (08:48)
[2020-04-11] MEDS ORDERED: NEOSTIGMINE 1 MG/ML 10 ML VIAL ONE (08:50)
[2020-04-11] MEDS ORDERED: fentaNYL (PF) 50 MCG/ML 2 ML AMP ONE (08:50)
[2020-04-11] MEDS ORDERED: PROPOFOL 10 MG/ML 20 ML VIAL IV ONE (08:50)
[2020-04-11] MEDS ORDERED: SUCCINYLCHOLINE CHLORIDE VIAL 200 MG/10 ML VIAL IV ONE (08:50)
[2020-04-11] MEDS ORDERED: ROCURONIUM 10 MG/ML (10 ML VIAL) IV ONE (08:50)
[2020-04-11] MEDS ORDERED: GLYCOPYRROLATE 0.2 MG/ML 2 ML VIAL ONE (08:50)
[2020-04-11] MEDS ORDERED: HYDROmorphone (PF) 1 MG/ML ONE (08:50)
--- NOTE | 2020-04-11 09:41 | P.OP ---
Date of Procedure: 04/11/20 Preoperative Diagnosis: Cholelithiasis Postoperative Diagnosis: Cholelithiasis Fatty liver Procedure(s) Performed: Laparoscopic cholecystectomy Anesthesia: ELIZABETH Surgeon: Michael Carrillo Estimated Blood Loss (ml): 5 Pathology: other (gall bladder) Condition: stable Disposition: PACU Description of Procedure: The patient was placed on the operating table. The patient received a general endotracheal tube anesthesia. The patients abdomen was prepped and draped in the usual sterile fashion. Through an infraumbilical stab incision, the fascia of the anterior abdominal wall was grasped with a pair of Kochers and then the Veress needle was placed in the peritoneal cavity. Position of the Veress needle was confirmed with positive drop test. The abdomen was then insufflated. After adequate insufflation, the 10 mm trocar was placed in the peritoneal cavity. Following this the laparoscope was placed in the peritoneal cavity. The patient was placed in the head-up, right side up position and then a 5 mm trocar was placed in the right lateral and right subcostal position under direct visualization. A 8 mm trocar was placed in the epigastric position. The gallbladder was grasped in the fundus and infundibulum. Traction on the gallbladder was placed in the lateral and the cephalad positions. The triangle of Calot was visualized.. The cystic duct was bluntly dissected until the union of the cystic duct and common bile duct was seen. A critical view of safety was achieved. The cystic duct was then divided and sealed with the Harmonic scissors. A PDS Endoloop was then placed throughout the cystic duct stump. The cystic artery divided and sealed with the Harmonic scissors. The gallbladder was then removed from the liver bed using Harmonic scissors. The gallbladder was then extracted through the epigastric port site. Operative field was checked for any bleeding spots and Harmonic scissors was used to coagulate the liver bed. The liver appeared fatty. A biopsy liver was performed using a toothed forcep. Electrocautery was used to control hemostasis. The abdomen was irrigated. The trocars were removed. The skin was closed using interrupted 3-0 Vicryl suture. Dermabond dressing were applied. The patient tolerated the procedure well.
[2020-04-11 09:44] LABS: Glucose,Whole Blood 148 mg/dL (75-99)
[2020-04-11 09:47] VITALS: TEMP 97.1
[2020-04-11 10:20] VITALS: RESP 18
[2020-04-11] MEDS ORDERED: IBUPROFEN 200 MG TAB PO ONE (10:26)
[2020-04-11 10:45] VITALS: BP 118/83; PULSE 78
== END 2020-04-11 11:01 | disposition home or self-care (01) ==
LOC: OR 06:58
PROVIDERS: ATTEND Surgery
DX: K80.10 Calculus of gallbladder with chronic cholecystitis without obstruction (principal); E11.9 Type 2 diabetes mellitus without complications; K21.9 Gastro-esophageal reflux disease without esophagitis; K74.69 Other cirrhosis of liver; K75.81 Nonalcoholic steatohepatitis (NASH); E78.5 Hyperlipidemia, unspecified; I10 Essential (primary) hypertension; G47.33 Obstructive sleep apnea (adult) (pediatric); Z90.49 Acquired absence of other specified parts of digestive tract; Z98.890 Other specified postprocedural states; Z91.89 Other specified personal risk factors, not elsewhere classified; Z87.891 Personal history of nicotine dependence; Z79.899 Other long term (current) drug therapy; Z79.84 Long term (current) use of oral hypoglycemic drugs
CPT/HCPCS: 47562; 47001; 88304; 88313; 88307; J2250; J0330; J1644; J1100; J2710; J0690; J2405; J3010; J1170; J2704

== ENCOUNTER 2021-05-16 07:11 | Day surgery (SDC) | payer BC ==
[2021-05-13 15:59] VITALS: BMI 39.0
[~2021-05-16 07:11] MED LIST changes: -ACETAMINOPHEN TAB 500 MG TAB PO ONE; -HEPARIN SODIUM,PORCINE 5,000 UNIT/ML 1 ML VIAL SQ ONE; -HYDROmorphone 0.5 MG/0.5 ML SYRINGE IVP PRN; +LIDOCAINE 1% (10MG/ML) FOR IV START INTRADERMA PRN; -MIDAZOLAM 2 MG/2 ML VIAL IV PRN; -ONDANSETRON 4 MG/2 ML VIAL IVP PRN; -fentaNYL (PF) 50 MCG/ML 2 ML AMP IV PRN
[2021-05-16 07:43] VITALS: TEMP 97.7
[2021-05-16 07:50] LABS: Glucose,Whole Blood 160 mg/dL (75-99)
[2021-05-16] MEDS ORDERED: PROPOFOL 10 MG/ML 20 ML VIAL IV ONE (08:50)
[2021-05-16] MEDS ORDERED: MIDAZOLAM 2 MG/2 ML VIAL ONE (08:50)
--- NOTE | 2021-05-16 08:52 | P.GSHP ---
History of Present Illness H&P Date: 05/16/21 Chief Complaint: Rectal bleeding This a 51-year-old male who's had complaints of rectal bleeding. Patient presents today for colonoscopy Past Medical History Past Medical History: Diabetes Mellitus, GERD/Reflux, GI Bleed, Hyperlipidemia, Hypertension Additional Past Medical History / Comment(s): currently having bleeding with stools History of Any Multi-Drug Resistant Organisms: None Reported Past Surgical History: Appendectomy, Cholecystectomy Additional Past Surgical History / Comment(s): hole in lining of stomach repaired to tx heartburn Past Anesthesia/Blood Transfusion Reactions: Previous Problems w/ Anesthesia Additional Past Anesthesia/Blood Transfusion Reaction / Comment(s): combative coming out of anesthesia from egd Smoking Status: Former smoker - Past Family History Mother Family Medical History: No Reported History Medications and Allergies Home Medications Medication Instructions Recorded Confirmed Type Fenofibrate Nanocrystallized 145 mg PO QAM 04/03/20 05/13/21 History [Fenofibrate] Metoprolol Succinate [Toprol XL] 50 mg PO QAM 04/03/20 05/13/21 History lisinopriL [Zestril] 10 mg PO QAM 04/03/20 05/13/21 History Atorvastatin [Lipitor] 20 mg PO HS 04/09/20 05/13/21 History Insulin Degludec [Tresiba] 5 units SQ DAILY 05/13/21 05/13/21 History Insulin Degludec [Tresiba] 10 units SQ DAILY PRN 05/13/21 05/13/21 History Pioglitazone HCl 30 mg PO DAILY 05/13/21 05/13/21 History Allergies Allergy/AdvReac Type Severity Reaction Status Date / Time No Known Allergies Allergy Verified 05/16/21 07:36 Surgical - Exam Vital Signs Temp Pulse Resp BP Pulse Ox 97.7 F 77 16 133/81 96 05/16/21 07:41 05/16/21 07:41 05/16/21 07:41 05/16/21 07:41 05/16/21 07:41 - General well developed, well nourished, no distress - Eyes PERRL - ENT normal pinna - Neck no masses - Respiratory normal expansion - Cardiovascular Rhythm: regular - Abdomen Abdomen: soft, non tender Results - Labs Abnormal Lab Results - Last 24 Hours (Table) 05/16/21 Range/Units 07:46 POC Glucose (mg/dL) 160 H (75-99) mg/dL Assessment and Plan Assessment: Rectal bleeding. We'll perform colonoscopy
--- NOTE | 2021-05-16 09:06 | P.OP ---
Date of Procedure: 05/16/21 Preoperative Diagnosis: Rectal bleeding Postoperative Diagnosis: Internal and external hemorrhoids Diverticulosis Procedure(s) Performed: Colonoscopy Anesthesia: MAC Surgeon: Michael Carrillo Pathology: none sent Condition: stable Disposition: PACU Description of Procedure: The patient's placed on the endoscopy table in the lateral position. He received IV sedation. Digital rectal exam was performed which revealed internal and external hemorrhoids. There was evidence of some hemorrhoidal bleeding. The flexible colonoscope was then placed patient anus passed throughout the entire colon. The ileocecal valve was visualized. The cecum, ascending and transverse colon appeared normal. In the descending and sigmoid colon there was moderate diverticulosis. The scope was then brought back into the rectum and this appeared normal. Scope withdrawn through the anus and internal and external hemorrhoids are noted again.
[2021-05-16 12:49] VITALS: BP 123/84; PULSE 69; RESP 20
== END 2021-05-16 09:40 | disposition home or self-care (01) ==
LOC: ORWHC2ENDO 07:11
PROVIDERS: ATTEND Surgery
DX: K62.5 Hemorrhage of anus and rectum (principal); K64.4 Residual hemorrhoidal skin tags; K64.8 Other hemorrhoids; K57.90 Diverticulosis of intestine, part unspecified, without perforation or abscess without bleeding; E11.9 Type 2 diabetes mellitus without complications; E66.9 Obesity, unspecified; F32.9 Major depressive disorder, single episode, unspecified; K21.9 Gastro-esophageal reflux disease without esophagitis; E78.5 Hyperlipidemia, unspecified; I10 Essential (primary) hypertension; Z87.891 Personal history of nicotine dependence; Z79.899 Other long term (current) drug therapy
CPT/HCPCS: 45378; J2250; J2704